=== PATIENT | female | born 1955 ===

== ENCOUNTER 2019-07-02 14:44 | Outpatient (CLI) | payer OTHER | END 2019-07-02 14:49 | disposition home or self-care (01) | LOC: RAD 14:44 | DX: M15.0 Primary generalized (osteo)arthritis (principal); M05.79 Rheumatoid arthritis with rheumatoid factor of multiple sites without organ or systems involvement ==

== ENCOUNTER 2020-04-15 10:08 | Outpatient (CLI) | payer OTHER | END 2020-04-15 10:23 | disposition home or self-care (01) | LOC: MAMO-SONO 10:08 | PROVIDERS: ATTEND Obstetrics & Gynecology | DX: Z12.31 Encounter for screening mammogram for malignant neoplasm of breast (principal); N60.11 Diffuse cystic mastopathy of right breast; N60.12 Diffuse cystic mastopathy of left breast ==

== ENCOUNTER 2020-05-30 11:07 | Outpatient (CLI) | payer OTHER | END 2020-05-30 11:13 | disposition home or self-care (01) | LOC: RAD 11:07 | DX: M15.0 Primary generalized (osteo)arthritis (principal); M05.89 Other rheumatoid arthritis with rheumatoid factor of multiple sites ==